=== PATIENT | female | born 1995 | race Caucasian/White ===

== ENCOUNTER 2017-09-27 16:58 | Emergency (ER) | payer BC ==
[2017-09-27 17:50] LABS: #Basophils 0.1 thou/uL (0.0-0.2); #Eosinphils 0.1 thou/uL (0.0-0.7); #Lymphocytes 1.8 thou/uL (1.20-3.40); #Monocytes 0.7 thou/uL (0.11-0.59); %Basophils 0.9 % (0.0-1.0); %Lymphocytes 20.4 % (28.0-48.0); %Monocytes 8.3 % (0.0-4.0); %Neutrophils 69.4 % (31.0-61.0); Hemoglobin 14.4 g/dL (12.0-16.0); Mean Corpuscular HGB CONC 34.2 g/dL (32.0-36.0); Mean Corpuscular Hemoglobin 30.3 pg (25.0-35.0); Mean Corpuscular Volume 88.7 fl (77.0-87.0); Mean Platelet Volume 7.9 fL (7.4-10.4); Platelet Count 242 thou/uL (130-400); RBC Distribution Width 11.6 % (11.5-14.5); Red Blood Cell (RBC) Count 4.77 mill/uL (4.00-5.20); White Blood Cell (WBC) Count 8.6 thou/uL (4.8-10.8)
[2017-09-27 17:53] LABS: Bilirubin Negative (Negative); Blood, Urine Negative (Negative); Clarity CLEAR (Clear); Glucose, Urine (Dipstick) Negative (Negative); Leukocyte Negative (Negative); Nitrite Negative (Negative); Protein, Urine (Dipstick) Negative (Neg-Trace); Specific Gravity, Urine 1.017 (1.002-1.036); pH, Urine 5.5 (5.0-9.0)
[2017-09-27 17:55] LABS: Pregnancy Test - Urine (BHCG) Negative (Negative); Pregu Control Background? CLEAR/WHITE (CLR/WHITE); Pregu Control Bar Appear? YES (CONTROL BAR); Specific Gravity 1.017 (1.002-1.036)
[2017-09-27 18:14] LABS: ALT (SGPT) 129 U/L (8-55); AST (SGOT) 82 U/L (5-34); Albumin 4.4 g/dL (3.5-5.0); Alkaline Phosphatase 87 U/L (40-150); Anion Gap 12 mmol/L (10-20); BUN (Urea Nitrogen) 10 mg/dL (7.0-18.7); Bilirubin, Total 0.7 mg/dL (0.2-1.2); Calc. Creatinine Clearance 0 mL/min (70-130); Calcium 9.6 mg/dL (7.8-10.44); Carbon Dioxide 28 mmol/L (22-29); Chloride 101 mmol/L (98-107); Estimated GFR-MDRD 86; Globulin 3.4 g/dL (2.4-3.5); Glucose 79 mg/dL (70-105); Lipase 11 U/L (8-78); Potassium 4.2 mmol/L (3.5-5.1); Protein, Total 7.8 g/dL (6.0-8.3); Sodium 137 mmol/L (136-145)
--- NOTE | 2017-09-27 19:21 | ULT ---
RIGHT UPPER QUADRANT ABDOMINAL ULTRASOUND 09/27/17 COMPARISON: None. HISTORY: Right upper quadrant pain since Saturday. TECHNIQUE: Multiplanar walsh scale and color doppler images were obtained in a right upper quadrant abdominal ult rasound. FINDINGS: The liver is normal in echogenicity without focal lesions or intrahepatic ductal dilatation. The gall bladder shows no shadowing stones, gallbladder wall thickening, or pericholecystic fluid. There is a small amount of sludge in the gallbladder. The common bile duct is normal measuring 4 mm. The visualized portions of the pancreas is unremarkable. The right kidney is normal in echogenicity w ithout hydronephrosis or calculus and measures 8.8 cm in length. IMPRESSION: No significant abnormality. POS: [facility]
== END 2017-09-27 22:03 | disposition home or self-care (01) ==
LOC: ERS 16:58
DX: R10.11 Right upper quadrant pain (principal); R74.0 Nonspecific elevation of levels of transaminase and lactic acid dehydrogenase [LDH]
CPT/HCPCS: 36415; 76705; 80053; 81003; 81025; 82150; 83690; 85025